=== PATIENT | female | born 1995 | race Caucasian/White ===

== ENCOUNTER 2018-12-30 12:16 | Emergency (ER) | payer OTHER ==
[~2018-12-30] VITALS: Ht 170.2 cm; Wt 64.8 kg
[2018-12-30 12:18] VITALS: BP 124/81
--- NOTE | 2018-12-30 12:53 | NUR ---
HERE FOR ASTHMA AND REFILL ON ANTIDEPRESSANT. SERTRALINE 200MG PO DAILY - LAST DOSE TODAY. NO PCP - "JUST MOVED HERE"
[2018-12-30] MEDS ORDERED: SERT100T32 PO (12:59)
== END 2018-12-30 13:06 | disposition home or self-care (01) ==
LOC: ED 12:49
DX: R06.02 Shortness of breath (principal); Z76.0 Encounter for issue of repeat prescription; F32.9 Major depressive disorder, single episode, unspecified; J45.909 Unspecified asthma, uncomplicated
CPT/HCPCS: 99283